=== PATIENT | male | born 1960 | race Caucasian/White ===

== ENCOUNTER 2024-03-03 10:45 | Emergency (ER) | payer OTHER ==
[~2024-03-03] VITALS: Ht 182.9 cm; Wt 88.9 kg
[2024-03-03] MEDS ORDERED: BETIMOL5 M2 (10:54)
[2024-03-03] MEDS ORDERED: LATANOPROST2.5 ML OPTH ×2 (10:58→11:24)
[2024-03-03] MEDS ORDERED: BETIMOL5 M2 OP (11:24)
[2024-03-03 11:30] VITALS: BP 149/109
== END 2024-03-03 11:30 | disposition home or self-care (01) ==
LOC: ED 10:45
DX: N18.1 Chronic kidney disease, stage 1 (principal); Z76.0 Encounter for issue of repeat prescription; Z88.0 Allergy status to penicillin; Z79.899 Other long term (current) drug therapy
CPT/HCPCS: 99281